=== PATIENT | female | born 1985 | race Caucasian/White ===

== ENCOUNTER 2023-01-29 08:12 | Emergency (ER) | payer OTHER, SELFPAY ==
[2023-01-29 08:16] VITALS: BP 136/93; PULSE 87; RESP 20; TEMP 36.7; O2SAT 99; BMI 35.1
--- NOTE | 2023-01-29 08:23 | ED.GENADUL1 ---
HPI - General Adult General Chief complaint: Urogenital-Female Stated complaint: BLOOD IN URINE Time Seen by Provider: 01/29/23 08:22 History of Present Illness HPI narrative: Patient is a 37-year-old female who is presenting to the Emergency Room with one episode of hematuria this morning. Patient has been taking 8-10 Motrin daily for the past month secondary to headaches. Patient is currently taking the Ozempic shot that she has purchased off the Internet from a nurse practitioner. Patient has lost approximately 22 pounds so far. Mother is at bedside. Patient also takes Excedrin daily to help with her headaches. Patient's been having normal daily headaches for the past month, she correlated to the Ozempic shot that she is receiving. Patient has a history of headaches and migraines, patient has tried multiple medications in the past with PCP with no relief for help with headaches when they come. She believes they come in waves. Patient has no headache today, she is not concerned about her headache today. Patient is most concerned about the one episode of hematuria that she had this morning and bladder cancer. Patient was on the Internet reading about bloody urine, she has no pain with hematuria. She had one episode like this 6 months ago and then it went away. Patient denies any type of trauma, sexual abuse, the types cuts to the vaginal/perianal area that could possibly bleeding. No hemorrhoids. Patient takes no blood thinners currently. Mother did add at the end of HPI the patient does have a history of factor V Leiden, she is currently noncompliant with any medication for that. She currently has no PCP, she's taking no blood thinners. She does take Excedrin tablet headaches, she takes no aspirin daily. She currently has no headache, no chest pain or shortness of breath. No abdominal pain, nausea or vomiting. She has some vague intermittent nausea and flank pain, she does not have a currently during my HPI physical exam. No recent traveling. Patient does smoke cigarettes a day. No control. No other acute complaints. No heavy lifting, twisting or turning recently. She is in no type of work, climbing, jet skis, or anything where her bodies been jumping up-and-down that could cause possible hematuria recently. . All systems are negative except as noted/marked. All systems reviewed and otherwise negative. . Nurses note and vital signs reviewed and patient is not hypoxic. General: The patient appears well and in no apparent distress. Patient is resting comfortably on cart. Patient is not toxic, lethargic, or listless Skin: Warm, dry, no pallor noted. There is no rash noted. No petechiae, purpura. Head: Normocephalic, atraumatic Eye: Normal conjunctiva, no drainage, EOMI. PERRL Ears, Nose, Mouth, and Throat: oral mucosa is moist. Nares patent. Mouth without vesicles. Cardiovascular: Regular Rate and Rhythm, no murmur, gallop, rub Respiratory: Patient is in no distress, no accessory muscle use, lungs are clear to auscultation, no wheezing, rales or rhonchi Back: non-tender, no CVA tenderness bilaterally to percussion. No CT LS midline pain GI: soft, no tenderness to palpation, no masses appreciated. No rebound, guarding, or rigidity noted. No flank pain bilateral, No distention. No flank pain bilateral. Musculoskeletal: Patient has full range of motion of all of the extremities, no motor, sensory, or focal neurological deficits Neurological: A&O x3, normal speech Psychiatric: Cooperative Related Data Home Medications Medication Instructions Recorded Confirmed semaglutide 1.3 mg subcut .weekly 01/29/23 01/29/23 Previous Rx's Medication Instructions Recorded metoclopramide HCl 10 mg tablet 10 mg PO Q6H PRN nausea and 01/29/23 (Reglan) vomiting 3 days #7 tabs Allergies Allergy/AdvReac Type Severity Reaction Status Date / Time No Known Drug Allergies Allergy Verified 01/29/23 08:15 PFSH PFSH Social History Smoking status: Never smoker Exam Constitutional Vital Signs, click to edit/add: Last Vital Signs Temp 98.1 F 01/29/23 08:16 Pulse 87 01/29/23 08:16 Resp 20 01/29/23 08:16 BP 136/93 H 01/29/23 08:16 Pulse Ox 99 01/29/23 08:16 O2 Del Method Room Air 01/29/23 08:16 Course Vital Signs Vital signs: Vital Signs Temperature 98.1 F 01/29/23 08:16 Pulse Rate 87 01/29/23 08:16 Respiratory Rate 20 01/29/23 08:16 Blood Pressure 136/93 H 01/29/23 08:16 Pulse Oximetry 99 01/29/23 08:16 Oxygen Delivery Method Room Air 01/29/23 08:16 Temperature 98.1 F 01/29/23 08:16 Pulse Rate 87 01/29/23 08:16 Respiratory Rate 20 01/29/23 08:16 Blood Pressure 136/93 H 01/29/23 08:16 Pulse Oximetry 99 01/29/23 08:16 Oxygen Delivery Method Room Air 01/29/23 08:16 Medical Decision Making MDM Narrative Medical decision making narrative: Patient has trace blood, no red blood cells. Patient was given 1 L of IV fluid. Lab work and urine showed no significant findings. Patient will follow up with and establish new PCP. Patient is given a PCP list. Patient was also referred to Dr. Nguyen for headaches and Dr. Alba to establish new PCP. Patient increase fluids. Patient's concerned about bladder cancer. Patient was educated several times including smoking, falling up with urology and Dr. Baird for further testing if needed for painless hematuria Lab Data Lab results reviewed: Yes I reviewed the patient's lab results Lab results narrative: Patient's BUN creatinine are within normal limits. There was a concern would be on creatinine secondary to moderate Motrin she is taking daily. Patient has trace blood in the urine, no significant red blood cells. alot of possibilities of differential diagnosis of painless hematuria were discussed the patient and mother bedside during HPI and at discharge. Labs: Lab Results 01/29/23 Range/Units 08:30 Sodium 138 (136-145) mmol/L Potassium 3.5 (3.5-5.1) mmol/L Chloride 103 (98-107) mmol/L Carbon Dioxide 28.1 (21.0-32.0) mmol/L Anion Gap 10.4 BUN 9.0 (7.0-18.0) mg/dL Creatinine 0.67 (0.55-1.02) mg/dL Est GFR ( Amer) >60 (>=60) Est GFR (Non-Af Amer) >60 (>=60) BUN/Creatinine Ratio 13.4 Glucose 94 (74-106) mg/dL Calcium 9.0 (8.5-10.1) mg/dL Urine Color Lt. yellow (YELLOW) Urine Clarity Clear (CLEAR) Urine pH 6.0 (5.0-9.0) Ur Specific [place] <=1.005 A (1.005-1.025) Urine Protein Negative (NEG/TRACE) mg/dL Urine Glucose (UA) Negative (NEGATIVE) mg/dL Urine Ketones Negative (NEGATIVE) mg/dL Urine Occult Blood Trace-i (NEGATIVE) Urine Nitrite Negative (NEGATIVE) Urine Bilirubin Negative (NEGATIVE) Urine Urobilinogen 0.2 (0.2-1.0) EU/dL Ur Leukocyte Esterase Negative (NEGATIVE) Urine RBC 0-2 (0-2) #/HPF Urine WBC None seen (NONE SEEN) #/HPF Ur Squamous Epith Cells Few A (NONE/RARE) #/LPF Urine Crystals None seen (None Seen) #/HPF Urine Bacteria Trace A (NONE SEEN) #/HPF Urine Casts None seen (NONE SEEN) #/LPF Urine Mucus None seen (NONE SEEN) Urine HCG, Qual Negative (NEGATIVE) Discharge Plan Discharge Chief Complaint: Urogenital-Female Clinical Impression: Hematuria Patient Disposition: Home, Self-Care Condition: Good Prescriptions / Home Meds: New metoclopramide HCl [Reglan] 10 mg tablet 10 mg PO Q6H PRN (Reason: nausea and vomiting) 3 Days Qty: 7 0RF No Action semaglutide [Ozempic] 1.3 mg subcut .weekly Instructions: Hematuria (ED) Additional Instructions: Continue to increase fluids. Establish a PCP, especially with her history of factor V Leiden. Start taking at least a baby aspirin if not a full aspirin daily. Be cautious with taking Excedrin and Motrin together. Use Reglan as needed for nausea and vomiting or headaches.Follow-up with neurology and urology if needed for headaches and hematuria if it continues Stand Alone Forms: Portal Instructions Referrals: CHOLO NGUYEN [Physician] - 1 week Matt Alba MD [Physician] - 1 week Physician,Non-Staff, [Primary Care Provider] - 1 week Miah Baird MD [Physician] - 1 week
[2023-01-29 08:47] LABS: Bilirubin Urine NEGATIVE (NEGATIVE); Blood Urine TRACE-I (NEGATIVE); Clarity Urine CLEAR (CLEAR); Color Urine LT. YELLOW (YELLOW); Glucose Urine UA NEGATIVE (NEGATIVE); Ketones Urine NEGATIVE (NEGATIVE); Leukocyte Esterase Urine NEGATIVE (NEGATIVE); Nitrite Urine NEGATIVE (NEGATIVE); Protein Urine NEGATIVE (NEG/TRACE); Specific Gravity Urine <=1.005 (1.005-1.025); Urobilinogen Urine 0.2 EU/dL (0.2-1.0)
[2023-01-29 08:56] LABS: Anion Gap 10.4; BUN Creatinine Ratio 13.4; Bacteria Urine TRACE #/HPF (NONE SEEN); Carbon Dioxide 28.1 mmol/L (21.0-32.0); Cast Seen? NONE SEEN #/LPF (NONE SEEN); Chloride 103 mmol/L (98-107); Crystals Seen? None Seen #/HPF (None Seen); Estimated GFR (African America >60 (>=60); Estimated GFR (Non-African Ame >60 (>=60); Glucose 94 mg/dL (74-106); Mucus Urine NONE SEEN (NONE SEEN); Potassium 3.5 mmol/L (3.5-5.1); RBC Urine 0-2 #/HPF (0-2); Sodium 138 mmol/L (136-145); Squamous Epithelial Cell Urine FEW #/LPF (NONE/RARE); WBC Urine NONE SEEN #/HPF (NONE SEEN)
[2023-01-29 08:57] LABS: HCG Qualitative Urine* NEGATIVE (NEGATIVE)
[2023-01-29] MEDS: 0.9 % SODIUM CHLORIDE 1,000 ML 1000 ML IV (09:07)
== END 2023-01-29 09:53 | disposition home or self-care (01) ==
PROVIDERS: Emergency Provider Emergency Medicine
DX: R31.9 Hematuria, unspecified (principal); D68.51 Activated protein C resistance
CPT/HCPCS: 36415; 80048; 81001; 84703; 99284

== ENCOUNTER 2023-02-21 08:00 | Outpatient (OUT) | payer OTHER, SELFPAY ==
--- NOTE | 2023-02-21 08:05 | CT_ITS ---
The [address] [address] Patient Name: ALEXANDER RAMOS MRN: [id number]:[id number] date: 1985 Sex: F Assigned Patient Location: CT Current Patient Location: CT Accession/Order Number: [id number] Exam Date: 02/21/2023 09:07 Report Date: 02/21/2023 09:53 At the request of: NON-STAFF PHYSICIAN Procedure: CT abdomen pelvis w con EXAM: CT abdomen pelvis w con HISTORY: Gross hematuria R31.0 COMPARISON: None. TECHNIQUE: Axial CT images were obtained of the abdomen and pelvis with intravenous contrast. Postcontrast images were obtained in the portal venous and delayed phases. Multiplanar reconstructions were performed. ABDOMEN/PELVIS FINDINGS: Lower Chest: Atelectasis is present in the right lung base. Liver: Normal enhancement and contour. Biliary/Gallbladder: Unremarkable. Pancreas: Unremarkable. Spleen: Unremarkable. Adrenal Glands: Unremarkable. Kidneys: No renal calculus or hydronephrosis identified. Gastrointestinal/Peritoneum: No acute abnormality. The appendix is unremarkable. No free air or free fluid. Vascular: Unremarkable. Lymph Nodes: No enlarged lymph nodes by CT size criteria. Pelvic Organs: Unremarkable. Bladder: Unremarkable. Bones: No acute osseous abnormality. Mild degenerative disc and facet disease is present at the lower lumbar spine. Soft tissues: Unremarkable. CT/CT abdomen pelvis w con IMPRESSION: 1. No acute abnormality of the abdomen and pelvis. Electronically authenticated by: CONCEPCION SILVA Date: 02/21/2023 09:53
== END 2023-02-21 08:01 | disposition home or self-care (01) ==
LOC: CT 08:00
DX: R31.0 Gross hematuria (principal)
CPT/HCPCS: 74177; Q9967

== ENCOUNTER 2023-03-04 21:40 | Emergency (ER) | payer OTHER, SELFPAY ==
[2023-03-04 21:43] VITALS: BP 121/81; PULSE 83; RESP 16; TEMP 36.8; O2SAT 97; BMI 34.5
--- NOTE | 2023-03-04 22:03 | ED_ITS ---
HPI - Extremity Injury (Lower) General Chief Complaint: Extremity Injury, Lower Stated Complaint: lower leg Pain Time Seen by Provider: 03/04/23 21:51 Source: patient Mode of arrival: walk-in History of Present Illness HPI Narrative: history of factor V leiden deficiency. Past history of PE when she was in her early 20s. Today around 4pm developed pain of her right calf. concerned about possible blood clot and decided to some into the ER. No fever. No swelling or redness of her leg. No injury Related Data Home Medications Medication Instructions Recorded Confirmed No Known Home Medications 03/04/23 03/04/23 Allergies Allergy/AdvReac Type Severity Reaction Status Date / Time No Known Drug Allergies Allergy Verified 01/29/23 08:15 Review of Systems ROS Status of ROS 10 or more systems reviewed and unremarkable except as noted in history and below [facility] Social History Smoking status: Former smoker Exam Constitutional Vital Signs, click to edit/add: Last Vital Signs Temp 98.3 F 03/04/23 21:43 Pulse 83 03/04/23 21:43 Resp 16 03/04/23 21:43 BP 121/81 03/04/23 21:43 Pulse Ox 97 03/04/23 21:43 O2 Del Method Room Air 03/04/23 21:43 Common normals: no apparent distress, average body habitus, oriented x3, no limitations, healthy appearing and alert Eye Common normals: EOMs intact bilaterally and conjunctivae normal Respiratory Common normals: normal respiratory effort, no retractions, no use of accessory muscles and clear to auscultation bilaterally Cardio Common normals: regular rate, regular rhythm, S1 normal heart sound and S2 normal heart sound GI Common normals: Normal to inspection, nondistended, normoactive bowel sounds present and soft to palpation Extremity Common normals: normal to inspection and full ROM Other: right leg is not swollen but she does have tenderness of the right calf and popliteal. No erythema or warmth Neuro Common normals: oriented x3, moves all extremities, no focal motor deficits and no sensory deficits noted Psych Appearance: grossly normal Course Vital Signs Vital signs: Vital Signs Temperature 98.3 F 03/04/23 21:43 Pulse Rate 83 03/04/23 21:43 Respiratory Rate 16 03/04/23 21:43 Blood Pressure 121/81 03/04/23 21:43 Pulse Oximetry 97 03/04/23 21:43 Oxygen Delivery Method Room Air 03/04/23 21:43 Temperature 98.3 F 03/04/23 21:43 Pulse Rate 83 03/04/23 21:43 Respiratory Rate 16 03/04/23 21:43 Blood Pressure 121/81 03/04/23 21:43 Pulse Oximetry 97 03/04/23 21:43 Oxygen Delivery Method Room Air 03/04/23 21:43 MDM - Extremity Injury (Lower) MDM Narrative Medical decision making narrative: patient has past history of PE several years ago. Past history of factor V Leiden. Now presents with right calf pain and tenderness. No known injury no fever. No swelling. d-dimer neg. Patient informed of the lack of findings at this time of a DVT. Will have her arrange an out patient US of her leg as the US tech is not in house at this time of night. Discharge Plan Discharge Chief Complaint: Extremity Injury, Lower Clinical Impression: Acute pain of right lower extremity Prescriptions / Home Meds: No Action No Known Home Medications Instructions: Leg Pain (ED) Additional Instructions: follow up with ultrasound of your leg Stand Alone Forms: Portal Instructions Referrals: Physician,Non-Staff, MD [Primary Care Provider] - 1 week
[2023-03-04 22:21] LABS: Basophils Absolute Auto 0.1 10^3/uL (0.0-0.1); Basophils Percent Auto 0.6 % (0.2-2.0); Eosinophils Absolute Auto 0.1 10^3/uL (0.0-0.7); Eosinophils Percent Auto 1.1 % (0.9-7.0); Hematocrit 40.2 % (36.0-48.0); Hemoglobin 13.4 g/dL (12.0-16.0); Immature Granulocytes Abs Auto 0.03 10^3/uL (0.00-0.03); Immature Granulocytes Pct Auto 0.3 % (0.0-0.5); Lymphocytes Absolute Auto 3.1 10^3/uL (1.2-3.8); Mean Corpuscular HGB Conc 33.3 g/dL (29.9-35.2); Mean Corpuscular Hemoglobin 29.6 pg (26.7-34.0); Mean Corpuscular Volume 88.7 fL (81.0-99.0); Mean Platelet Volume 9.8 fL (9.5-13.5); Monocytes Absolute Auto 0.6 10^3/uL (0.3-0.8); Monocytes Percent Auto 6.2 % (1.7-12.0); Neutrophils Absolute Auto 6.1 10^3/uL (1.4-6.5); Neutrophils Percent Auto 60.8 % (43.0-75.0); Platelet Count 349 10^3/uL (150-450); Red Blood Count 4.53 10^6/uL (4.20-5.40); Red Cell Distribution Width 13.2 % (11.0-15.0)
[2023-03-04 22:29] LABS: Anion Gap 12.2; BUN Creatinine Ratio 16.4; Carbon Dioxide 25.4 mmol/L (21.0-32.0); Chloride 105 mmol/L (98-107); Estimated GFR (African America >60 (>=60); Estimated GFR (Non-African Ame >60 (>=60); Glucose 117 mg/dL (74-106); Potassium 3.6 mmol/L (3.5-5.1); Sodium 139 mmol/L (136-145)
== END 2023-03-04 23:17 | disposition home or self-care (01) ==
PROVIDERS: Emergency Provider Internal Medicine
DX: M79.661 Pain in right lower leg (principal); D68.51 Activated protein C resistance; Z86.711 Personal history of pulmonary embolism; Z87.891 Personal history of nicotine dependence
CPT/HCPCS: 36415; 80048; 85025; 85378; 99283

== ENCOUNTER 2025-01-24 20:24 | Emergency (ER) | payer OTHER, SELFPAY ==
[2025-01-24 20:53] VITALS: BP 138/100; PULSE 120; TEMP 36.8; O2SAT 96; BMI 32.7
--- OUTSIDE RECORDS SUMMARY | 2025-01-24 21:14 | XMS_ITS | Encounter Summary ---
[facility] Organization [facility] Address [address] [place] [address] Care Team Providers Care Special Education Coordinator Name Role Phone Rosy Dominguez GHADA-STRUCTURAL ENGINEERING PROJECT MANAGER Primary Care Provider Susie Driver MD Unavailable Reason for Visit * Reason Onset Date Comments No Show 01/19/2016 Encounter Details Date Type Department Care Team (Late st Contact Info) Description 01/19/2016 Telephone [facility] [address] [place] [address] [place] [address] Sydnee Bowling No Show Social History Tobacco Use Types Packs/Day Years Used Date Smoking Tobacco: Former Cigarettes 0 11/22/2011 - 11/21/2014 Smokeless Tobacco: Never Comments:quit when found out Alcohol Use Standard Drinks/Week Comments Yes 0 (1 standard drink = 0.6 oz pure alcohol) 1 x a week; not during Comments No Sex and Gender Information Value Date Recorded Sex Assigned at Not on file Legal Sex Female 6:43 PM EST Gender Identity Female Sexual Orientation Not on file 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 Answer Date of Assessment Author No 10/02/2015 10:00 PM Ina Arnold RN * Are you blind or do you have serious difficulty seeing, even when wearing glasses? Answer Date of Assessment Author No 10/02/2015 10:00 PM Ina Arnold RN * Do you have serious difficulty walking or climbing stairs (5 years or older)? Answer Date of Assessment Author No 10/02/2015 10:00 PM Ina Arnold RN * Do you have difficulty dressing or bathing (5 yrs or older)? Answer Date of Assessment Author No 10/02/2015 10:00 PM Ina Arnold RN * Because of a physical, mental, or emotional condition, do you have difficulty doing errands alone such as visiting a doctor's office or shopping (5 yrs or older)? Answer Date of Assessment Author No 10/02/2015 10:00 PM Ina Arnold RN documented as of this encounter Mental Status * Because of a physical, mental, or emotional condition, do you have serious difficulty concentrating, remembering, or making decisions (5 yrs or older)? Answer Entry Date Author No 10/02/2015 10:00 PM Ina Arnold RN documented in this encounter Plan of Treatment Not on file documented as of this encounter Visit Diagnoses Not on filedocumented in this encounter Additional Health Concerns Assessment Noted Time PHQ-9 Depression Total Score: 13 016 9:40 AM EDT documented as of this encounter Care Teams Special Education Coordinator Relationship Specialty Start Date End Date Rosy Dominguez APRN-JOSE PCP - General Certified Nurse Practitioner 04/22/13 02/05/21 Susie Loving MD PCP - OBGYN Obstetrics & Gynecology 10/03/15 documented as of this encounter
--- OUTSIDE RECORDS SUMMARY | 2025-01-24 21:14 | XMS_ITS | Clinical Summary ---
Author Organization [facility] tem Address [id number] [address] 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 07/24/2021 Overview (07/24/2021): Patient taking Lovenox will need growth ultrasounds every 4 weeks starting at 28 weeks Factor 5 Leiden mutation, heterozygous Overview (07/24/2021): Patient on Lovenox Less than 8 weeks gestation of 022 Iron deficiency anemia 04/26/2021 Vitamin D insufficiency 04/26/2021 Obesity due to excess calories 04/26/2021 Chronic fatigue 04/26/2021 Migraine without aura and wi thout status migrainosus, not intractable 04/26/2021 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 Repeat 3 years History of pulmonary embolism 10/23/2012 Overview (07/02/2021): Lovenox 40qd. Change to heparin at 36 weeks Will treat with 7500 units bid. Check PTT 6 hours after dose. Follow plts Based on her history I am recommending: i. Continue Low molecular heparin 40 mg subcutaneous now until 36 weeks or if labor. ii. At 36 weeks: switch to heparin 76627 units subcutaneous twice/day. iii. Stop anticoagulation during labor. iv. At 6 hours after vaginal delivery or 12 hours after , and if there are no concerns of bleeding, please start low molecular heparin 40 mg subcutaneous twice a day for 6 weeks. v. Observe for signs of DVT or PE. Resolved Problems Problem Noted Date Diagnosed Date Resolved Date Depression with anxiety 03/18/201709/2020 Immunizations Immunization Administration Dates Next Due Influenza, Injectable, quadrivalent (PF) 021 Family History Medical History Relation Name Comments Stroke Maternal Grandfather Cancer Maternal Grandmother GALLBLD ZAN Hypertension Mother Colon cancer Paternal Grandfather Diabetes Paternal Grandmother Breast cancer Neg Hx Ovarian cancer Neg Hx Relation Name Status Comments Brother Alive Father Alive Maternal Grandfather Maternal Grandmother Mother Alive Paternal Grandfather Paternal Grandmother Alive Social History Tobacco Use Types Packs/Day Years Used Date Smoking Tobacco: Former Cigarettes Q uit: 12/11/2005 Smokeless Tobacco: Never Tobacco Cessation:Counseling Given: Not Answered Alcohol Use Standard Drinks/Week Comments Not Currently 0 (1 standard drink = 0.6 oz pur e alcohol) rare PHQ-2 Answer Date Recorded Total Score 0 11/06/2021 Childcare Answer Date Recorded Childcare Unknown 12/02/2018 Employment Answer Date Recorded Employment Unknown 12/02/2018 Hunger Screening Answer Date Recorded Within the past 12 months we worried whether our food would run out before we got money to buy more. Never True 06/10/2022 Within the past 12 months th e food we bought just didn't last and we didn't have money to get more. Never True 06/10/2022 Comments No Sex and Gender Information Value Date Recorded Sex Assigned at Not on file Legal Sex Female 11:29 AM EDT Gender Identity Not on file Sexual Orientation Not on file Last Filed Vital Signs Vital Sign Reading Time Taken Comments Blood Pressure 124/74 06/10/2022 9:01 AM EST Pulse 60 06/10/2022 9:01 AM EST Temperature 36.8 C (98.2 F) 06/10/2022 9:01 AM EST Respiratory Rate 16 05/14/2022 10:3 9 AM EST Oxygen Saturation 97% 06/10/2022 9:01 AM EST Inhaled Oxygen Concentration - - Weight 114.5 kg (252 lb 6.4 oz) 06/10/2022 9:01 AM EST Height 172.7 cm (5' 7.99 ) 06/10/2022 9:01 AM ES T Body Mass Index 38.39 06/10/2022 9:01 AM EST Plan of Treatment Health Maintenance Due Date Last Done Comments Depression Screening 1997 Tobacco Screening 1997 Adult BMI Screening 06/10/2023 06/10/2022 Pap Smear 12/12/2023 12/11/2020, 11/22, 10/23/2012 COVID-19 Vaccine (2023- 5 season) 2024 05/18/2021, 09/30/2020, 09/02/2020 Influenza Vaccine 02/21/2025 04/26/2021, 03/10/2015 DTaP,Tdap and Td Vaccines (2 - Td or Tdap) 07/03/2025 07/03/2015 Medical Devices Not on file Procedures Procedure Name Priority Date/Time Associated Diagnosis Comments PAP SMEAR Routine 12/11/2020 10:55 AM EDT Screening for cervical cancer Well woman exam with routine gynecological exam from Last 3 Months or Most Recently Relevant to Health Maintenance Results * Pap Smear (12/11/2020 10:55 AM EDT) 12/11/2020 10:5 5 AM EDT 12/12/2020 10:58 AM EDT Narrative COPATH - 12/15/2020 1:18 PM EDT [email or web address] [address] [place] [address] Gynecologic Cytology Consultation Patient Name: DOMENICA BHANDARI : 1985 (Age: 35) Gender: F Taken: 12/11/2020 Reported: 12/15/2020 Physician(s): CASSANDRA Rick ([phone]) Copy To: [facility] Rec. #: [id number] Acct: # [id number] Final Cytologic Interpretation ThinPrep Pap Test (Vaginal/Cervical): Satisfactory for evaluation. A transformation zone component is present. NEGATIVE FOR INTRAEPITHELIAL LESION OR MALIGNANCY. lvt/12/15/2020 Interpretation performed at [facility], [address] [place] [address], License number: [id number]. Electronically Signed Out By ELLIOT Bonner(ASCP) Date of Last Menstrual Period: 11/29/2020 Other Clinical Conditions: Z12.4 Screening for malignant neoplasm of cervix Z01.419 Consulting It Architect exam wo/abn findings Source of Specimen ThinPrep Pap Test (Vaginal/Cervical) Thin Prep Pap (WEB SITE DESIGNER) Fee Code(s): G0145 The Pap test is a screening test with an inherent, but low, probability of error. The Pap test is primarily effective for the diagnosis and prevention of squamous cell carcinoma. Regular screening is critical for prevention. ThinPrep liquid-based slides, which meet the Verification Rep criteria for automated screening, have been screened by the ThinPrep Imaging System (as of 03/09/07) along with an additional manual rescreening by a neurodiagnostic tech and, if indicated, by a pathologist. Leanna TRUJILLO PATHOLOGY/CYTOLOGY ORDER PAIGE Final Result COPATH from Last 3 Months or Most Recently Relevant to Health Maintenance Insurance ANTH Care Teams Linux Solaris Administrator Relationship Specialty Start Date End Date Susana Ricardo, LOCKSTITCH LINING MAKER-PAD EXTRACTION TENDER [address], [place] [address] PCP - General Family Medicine 08/02/21
--- OUTSIDE RECORDS SUMMARY | 2025-01-24 21:14 | XMS_ITS | Clinical Summary ---
Author Organization [facility] Address [facility] [place] [address] Care Team Providers Care Wildland Fire Fighter Specialist Name Role Phone Rosy Dominguez CNP Unavailable [phone] Rosy Dominguez CNP Primary Care Provider [phone] Allergies No known active allergies Medications dextroamphetamin e-amphetamine (ADDERALL) 30 mg tablet Take 30 mg by mouth daily. Active fluticasone propionate (FLONASE) 50 mcg/actuation nasal sprayIndications :Acute non-recurrent maxillary sinusitis,Acute dysfunction of left eustachian tube Instill 2 (two) sprays into each nostril daily . 16 g 07/09/2019 Active Active Problems No known active problems Family History Medical History Relation Comments Glaucoma Father No Known Problems Mother Relation Status Comments Father Mother Social History Tobacco Use Types Packs/Day Years Used Date Smoking Tobacco: Former Smokeless Tobacco: Never Comments:Quit 2013 Alcohol Use Standard Drinks/Week Comments Yes 0 (1 standard drink = 0.6 oz pur e alcohol) Social Comments No Sex and Gender Information Value Date Recorded Sex Assigned at Not on file Legal Sex Female 1:41 PM EDT Gender Identity Not on file Sexual Orientation Not on file Last Filed Vital Signs Vital Sign Reading Time Taken Comments Blood Pressure 139/88 02/02/2020 4:26 PM EDT Pulse 96 02/02/2020 4:26 PM EDT Temperature 37.8 C (100 F) 02/02/2020 4:26 PM EDT Respiratory Rate 16 02/02/2020 4:26 PM EDT Oxygen Saturation 99% 02/02/2020 4:26 PM EDT Inhaled Oxygen Concentration - - Weight 112.5 kg (248 lb) 02/02/2020 4:26 PM EDT Height 172.7 cm (5' 8 ) 07/09/2019 7:42 PM EST Body Mass Index 37.71 07/09/2019 7:42 PM EST Plan of Treatment Health Maintenance Due Date Last Done Comments Depression Screening/Follow- Up (PHQ-2/9) 1997 HIV Screening 2000 Hepatitis C Screening 09/09/2003 Pap Smear 2006 Cervical Cancer Screening 09/09/2015 HPV/Cotest 09/09/2015 Wellness Visit 02/09/2016 02/08/2015 COVID-19 Vaccine (2023-2 5 season) 2024 Influenza Vaccine (#1) 2025 03/10/2015 Tetanus: Every 10yrs 07/03/2025 07/03/2015 Pneumococcal Vaccine: Ped or At-Risk Aged Out No longer eligible b ased on patient's age to complete this topic Insurance [facility] HMO/CHOICE PLUS/VALERIY/VALERIY PLUS [facility] HMO/CHOICE PLUS/VALERIY/VALERIY PLUS [employer] [place] [address] Care Teams Wildland Fire Fighter Specialist Relationship Specialty Start Date End Date Rosy Dominguez CNP [address] [place] [address] PCP - General Internal Medicine 02/02/20 Rosy Dominguez CNP [address] [place] [address] Internal Medicine 11/12/18
--- OUTSIDE RECORDS SUMMARY | 2025-01-24 21:14 | XMS_ITS | Clinical Summary ---
Author Organization [facility] Address [address] [place] [address] [place] [address] Care Team Providers Care Sow Farm Barn Technician Name Role Phone Eliz Loving MD Unavailable [phone] Allergies No known active allergies Medications Prenat w/o T-RoLm-YlCr-DSS -FA ( VITAMIN) Tab take 1 tablet by mouth daily. 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 Repeat 3 years OARRS REVIEWED AND APPROPRIATE BY DOCTOR: 06/28/16 08/02/2014 Overview (07/19/2016): 06/28/16- APPROPRIATE 01/19/15-APPROPRIATE 08/01/14-APPROPRIATE Generalized anxiety disorder 01/03/2014 Headache(784.0) 05/06/2013 History of pulmonary embolism 10/23/2012 Overview (09/05/2015): Lovenox 40qd. Change to heparin at 36 weeks Will treat with 7500 units bid. Check PTT 6 hours after dose. Follow plts Superficial injury of conjunctiva 08/28/2010 Resolved Problems Problem Noted Date Diagnosed Date Resolved Date 10/02/2015 11/17/2015 Normal labor and delivery 10/02/2015 Elevated glucose 07/04/2015 11/17/2015 Overview (07/11/2015): glucola 139. Needs 3h GTT Normal 3h GTT (72/133/131/105) Genetic screening 03/31/2015 11/17/2015 Overview (03/31/2015): FTS results: DSR: , T102/02: Heterozygous factor V Leiden complicating , antepartum 10/23/2012 12/28/2012 Immunizations Immunization Administration Dates Next Due Tdap Vaccine 07/03/2015 influenza, injectable, quadrivalent 03/10/2015 Family History Medical History Relation Name Comments Cancer- Other Maternal Grandmother Gallbl adder Diabetes Mother Hypertension Mother Bleeding or Clotting Problems Other 2 Pat uncles and 2 cousins with Factor V Leiden Bleeding or Clotting Problems Paternal Grandfather Factor V [place] Cancer- Other Paternal Grandfather Pancre atic Diabetes Paternal Grandmother Relation Name Status Comments Brother Alive Father Alive Maternal Grandfather Alive Maternal Grandmother Mother Alive Other Paternal Grandfather Paternal Grandmother Alive Social History Tobacco Use Types Packs/Day Years Used Date Smoking Tobacco: Every Day Cigarettes Started: 11/22/2011; Last attempted to quit: 11/21/2014 Smokeless Tobacco: Never Tobacco Cessation:Ready to Q uit: Yes; Counseling Given: No Comments:quit when found out Alcohol Use Standard Drinks/Week Comments Yes 0 (1 standard drink = 0.6 oz pure alcohol) 1 x a week; not during Depression Answer Date Recorded PHQ-9 Score 6 11/08/2019 Comments No Sex and Gender Information Value Date Recorded Sex Assigned at Not on file Legal Sex Female 6:43 PM EST Gender Identity Female Sexual Orientation Not on file 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 Not on file Not on file Not on jack e Last Filed Vital Signs Vital Sign Reading Time Taken Comments Blood Pressure 124/80 11/17/2018 10:52 AM EDT Pulse 100 11/17/2018 10:52 AM EDT Temperature 36.9 C (98.4 F) 06/02/2018 2:21 PM EST Respiratory Rate 16 06/02/2018 2:21 PM EST Oxygen Saturation 98% 06/02/2018 2:21 PM EST Inhaled Oxygen Concentration - - Weight 90.3 kg (199 lb) 11/17/2018 10:52 AM EDT Height 170.2 cm (5' 7 ) 06/02/2018 2:21 PM EST Body Mass Index 31.17 06/02/2018 2:21 PM EST Plan of Treatment Health Maintenance Due Date Last Done Comments HEPATITIS C VIRUS SCREENING 1985 HEP B VACCINE (1 of 3 - 19+ 3-dose series) 2004 PREVENTATIVE HEALTH VISIT 02/09/2016 02/08/2015 PAP SMEAR 11/16/2018 11/17/2015, 10/23/2012 COVID-19 VACCINE ( - 2023-2 5 season) 2024 INFLUENZA VACCINE (#1) 2025 03/10/2015 TETANUS 07/03/2025 07/03/2015 HIV SCREENING DISCUSSION Completed 015, 10/23/2012 TDAP (ADULT) Completed 07/03/2015 HPV VACCINE Aged Out No longer eligi ble based on patient's age to complete this topic PNEUMOCOCCAL VACCINE SERIES Aged Out No longer eligible based on patient's age to complete this topic Procedures Procedure Name Priority Date/Time Associated Diagnosis Comments CYTOLOGY-RELIEF MAN, LIQUID BASED Routine 11/17/2015 10:48 AM EDT HIV 1 AND 2 ANTIBODIES Routine 02/08/2015 3:09 PM EDT Unspecified screening Encounter for supervision of other normal , unspecified trimester from Last 3 Months or Most Recently Relevant to Health Maintenance Results * CYTOLOGY-RELIEF MAN, LIQUID BASED (11/17/2015 10:48 AM EDT) Historical Case Report Cytology Report Patient Name: ALEXANDER BHANDARI Med. Rec. #: [id number] Submitting Physician: ELIZ LOVING Clinical History: Date of Last Menstrual Period: 01/03/2015 Treatment History: HPV HR with genotype regardless of Pap - Routine follow-up [Z39.2] - Primary Source of Specimen(s): * A: Cervical/Endocer vical, Liquid Based, ThinPrep Pap Stain x 4, DBP x 1 Statement of Adequacy: Satisfactory For Evaluation; Endocervical/Tra nsformation Zone Component Present. ---Cytologic Interpretation-- - - Atypical Squamous Cells of Undetermined Significance (ASC-US). - HPV Results Reported As An Addendum. rzsx/RZSX:11/23/19 16 Electronicall y Signed Out By Maryanne White MD Plater Hot Dip : ELLIOT [place](ASCP) Procedures/ Addenda HPV High Risk, with Genotyping Date Ordered: 11/21/2015 Status: Signed Out Date Reported: 11/22/2015 Interpretation HPV Genotype 16: Negative HPV Genotype 18: Negative HPV other High Risk types, PCR: Negative HPV DNA detection performed by Real-Time PCR. The assay detects HPV 16, 18, 31, 33, 35, 39, 45, 51, 52, 56, 58, 59, 66, 68. The Cale Kya 4800 is FDA approved for Thin Prep sample testing. Sure Path sample testing was developed and its performance characteristics determined by the [facility] at [facility]. This assay has not been cleared or approved by the FDA for Sure Path samples. The laboratory is regulated under CLIA as qualified to perform high complexity testing. This test is used for clinical purposes. It should not be regarded as investigational or for research. CLINICAL LABORATORY Pathologic Diagnosis Statement of Adequacy: Satisfactory For Evaluation; Endocervical/Tra nsformation Zone Component Present. ---Cytologic Interpretation-- - - Atypical Squamous Cells of Undetermined Significance (ASC-US). - HPV Results Reported As An Addendum. CLINICAL LABORATORY CYTOLOGY, OTHER 11/17/2015 1 0:48 AM EDT 11/21/2015 10:48 AM EDT us Eliz Loving MD CYTOLOGY Edited Result - Final CLINICAL LABORATORY [address] [place] [address] * HIV 1 AND 2 ANTIBODIES (02/08/2015 3:09 PM EDT) HIV-1/HIV-2 AB/p24 Antigen NONREACTIVE NONREACTIVE LAB, [facility] 02/08/2015 3:09 PM EDT 02/08/2015 6:05 PM EDT Joanie Ocasio MAIL TELLER-NUCLEAR PLANT EQUIPMENT OPERATOR IMMUNOLOGY ORDERABLES Final Result LAB, [facility] [address] [place] [phone] from Last 3 Months or Most Recently Relevant to [place] [address] Advance Directives For more information, please contact: [phone] (7:30 AM - 6PM [facility], Friday-Friday) * Full Code-Unverified (Latest Code Status on File) Date Activated Date Inactivated Comments 10/03/2015 11:21 AM 10/05/2015 3:13 PM * Full Code-Unverified Date Activated Date Inactivated Comments 10/02/2015 6:11 PM 10/03/2015 11:21 AM * Full Code Date Activated Date Inactivated Comments 12/10/2012 9:34 AM 12/10/2012 5:34 PM Care Teams Sow Farm Barn Technician Relationship Specialty Start Date End Date Eliz Loving MD PCP - OBGYN Obstetrics & Gynecology 10/03/15
--- OUTSIDE RECORDS SUMMARY | 2025-01-24 21:14 | XMS_ITS | Encounter Summary ---
Author Organization [employer] Address [id number] [address] [place] [address] Care Team Providers Care Director Family Name Role Phone Susana Ricardo APRN-SURFACE PLATE INSPECTOR Primary Care Provi zan Encounter Details Date Type Department Care Team (Late st Contact Info) Description 06/12/2021 Telephone [facility] [address] [id number] Tammi Wild MA Social History Tobacco Use Types Packs/Day Years Used Date Smoking Tobacco: Former Cigarettes Q uit: 12/11/2005 Smokeless Tobacco: Never Alcohol Use Standard Drinks/Week Comments Yes 0 (1 standard drink = 0.6 oz pur e alcohol) rare PHQ-2 Answer Date Recorded Total Score 0 05/16/2021 Childcare Answer Date Recorded Childcare Unknown 12/02/2018 Employment Answer Date Recorded Employment Unknown 12/02/2018 Comments No Sex and Gender Information Value Date Recorded Sex Assigned at Not on file Legal Sex Female 11:29 AM EDT Gender Identity Not on file Sexual Orientation Not on file COVID-19 Exposure Response Date Recorded In the last month, have you been in contact with someone who was confirmed or suspected to have Coronavirus / COVID-19? No / Unsure 05/16/2021 8:48 AM EST documented as of this encounter Miscellaneous Notes * Telephone Encounter - Tammi Wild MA - 06/12/2021 9:55 AM EST Patient called to set up for an intake appt. She did mention once she became she was told she needed to start giving herself shots due to embolisms when she was younger? I set her intake up for Jul 11 and I let patient know if you needed to call before her appt that you would contact her. If not, to keep appt and you would go over everything with her then . Patient ok'd * Telephone Encounter - Sydnee Child LPN - 06/12/2021 9:55 AM EST Spoke with Pt, note sent to Dr Arellano. documented in this encounter Plan of Treatment Not on file documented as of this encounter Visit Diagnoses Not on filedocumented in this encounter Additional Health Concerns Assessment Noted Time PHQ-9 Depression Total Score: 0 05/16/20 8:53 AM EST A Body Mass Index follow-up plan has been documented for the patient 12/11/2020 12:05 PM EDT documented as of this encounter Care Teams Director Family Relationship Specialty Start Date End Date Susana Ricardo, GHADA-JOSE [address], [place] [address] PCP - General Family Medicine 08/02/21 documented as of this encounter
--- OUTSIDE RECORDS SUMMARY | 2025-01-24 21:14 | XMS_ITS | Encounter Summary ---
Author Organization [employer] [email or web address] Address [id number] [address] [place] [address] Care Team Providers Care Headrig Sawyer Name Role Phone Susana Ricardo Primary Care Provi [facility] Reason for Referral * Diagnostic Imaging (Routine) - Closed Specialty Diagnoses / Procedures Referred By Conttigre t Referred To Contact Maternal and Medicine Diagnoses First trimester screening Procedures US MFM with or without consult Jeny Hopkins APRN-CNM [address], [address] [place] [address] Phone: tel: fax: Maternal- Medicine at [facility] [address] [place] [address] Phone: tel: fax: Referral ID Status Reason Start Date Expiration Date Visits Re quested Visits Authorized [id number] Closed 06/21/2021 06/21/2022 1 1 Encounter Details Date Type Department Care Team (Late st Contact Info) Description 06/21/2021 Orders Only Maternal- Medicine at [facility] [address] [place] [phone] Jeny Hopkins, [facility] [address] [facility] PHOENIXShabbir, [address] [place] [address] First trimester screening (Primary Dx) Social History Tobacco Use Types Packs/Day Years [...] on file Sexual Orientation Not on file documented as of this encounter Plan of Treatment Not on file documented as of this encounter Results * US MFM BASIC OB < 14 WEEKS, 1 FETUS (07/02/2021 8:54 AM EST) Anatomical Region Laterality Modality Pelvis Ultrasound 07/02/2021 8:29 AM EST Impressions 07/02/2021 11:05 AM EST IMPRESSION: 1. Single intrauterine size consistent with dates. KATHERINE 02/19/22. 2. Small subchorionic hematoma noted near the lower uterine segment and measures 0.7 x 1 x 0.6 cm. Narrative 07/02/2021 11:05 AM EST OBSTETRICS REPORT (Signed Final 07/02/2021 11:05) PATIENT INFO: ID #: [id number] : [birth year] (35 yrs)(F) Name: DOMENICA HERNANDEZ Visit Date: 07/02/2021 08:29 RICHARD PERFORMED BY: Performed By: Destini Kellogg RDMS Attending: Johann Raman MD Referred By: Meri He. Address: [facility] [place] [address] Location: Maternal Medicine Mtz SERVICE(S) PROVIDED: OB Transvaginal 19643 Basic OB, 1st trimester (< 14 weeks), 1 fetus [id number] INDICATIONS: Viability O36.80X9 Supervision of other high risk , O09.90 antepartum- Factor V Supervision of elderly (over 35 years), O09..519 antepartum VITAL SIGNS: Weight (lb): 258 Height: 5'8 BMI: 39.22 EVALUATION: Num Of Fetuses: 1 Yolk Sac: 2.5 Heart Rate(bpm): 108 Cardiac Activity: Present & appears normal BIOMETRY: CRL: 6.2 mm G.Age: 6w 3d KATHERINE: 02/22/22 OB HISTORY: : 3 Term: 1 SAB: 1 Livin GESTATIONAL AGE: LMP: 6w 6d Date: 05/15/21 KATHERINE: 02/19/22 Best: 6w 6d Det. By: LMP (05/15/21) KATHERINE: 02/19/22 CERVIX UTERUS ADNEXA: Uterus Gravid uterus Left Ovary Size(cm) 1.5 x 2.2 x 1.5 Vol(ml): 2.59 Simple cyst measuring 1.3 x 1.2 x 0.8 cm. Right Ovary Not visualized Cul De Sac No fluid seen Adnexa No adnexal masses identified COMMENTS: 1. A trans vaginal ultrasound was performed to optimize the visualization of the lower uterine segment and the cervix. RECOMMENDATIONS: 1. Please see MFM consultation documentation from today's encounter. 2. Subsequent follow up or other follow up as clinically determined by primary OB provider unless otherwise specified by MFM. 3. Results forwarded to ordering provider so they can follow up with the patient as necessary. Johann Raman MD Electronically Signed Final Report 07/02/2021 11:05 Procedure Note Johann Raman MD - 07/02/2021 OBSTETRICS REPORT (Signed Final 07/02/2021 11:05) PATIENT INFO: ID #: [id number] : [birth year] (35 yrs)(F) Name: DOMENICA HERNANDEZ Visit Date: 07/02/2021 08:29 RICHARD PERFORMED BY: Performed By: Destini Kellogg RDMS Attending: Johann Raman MD Referred By: Meri He. Address: [facility] [place] [address] Location: Maternal Medicine Mtz SERVICE(S) PROVIDED: OB Transvaginal 720[address] Basic OB, 1st trimester (< 14 weeks), 1 fetus [id number] INDICATIONS: Viability O36.80X9 Supervision of other high risk , O09.90 antepartum- Factor V Supervision of elderly (over 35 years), O09..519 antepartum VITAL SIGNS: Weight (lb): 258 Height: 5'8 BMI: 39.22 EVALUATION: Num Of Fetuses: 1 Yolk Sac: 2.5 Heart Rate(bpm): 108 Cardiac Activity: Present & appears normal BIOMETRY: CRL: 6.2 mm G.Age: 6w 3d KATHERINE: 02/22/22 OB HISTORY: : 3 Term: 1 SAB: 1 Livin GESTATIONAL AGE: LMP: 6w 6d Date: 05/15/21 KATHERINE: 02/19/22 Best: 6w 6d Det. By: LMP (05/15/21) KATHERINE: 02/19/22 CERVIX UTERUS ADNEXA: Uterus Gravid uterus Left Ovary Size(cm) 1.5 x 2.2 x 1.5 Vol(ml): 2.59 Simple cyst measuring 1.3 x 1.2 x 0.8 cm. Right Ovary Not visualized Cul De Sac No fluid seen Adnexa No adnexal masses identified COMMENTS: 1. A trans vaginal ultrasound was performed to optimize the visualization of the lower uterine segment and the cervix. RECOMMENDATIONS: 1. Please see MFM consultation documentation from today's encounter. 2. Subsequent follow up or other follow up as clinically determined by primary OB provider unless otherwise specified by MFM. 3. Results forwarded to ordering provider so they can follow up with the patient as necessary. Johann Raman MD Electronically Signed Final Report 07/02/2021 11:05 IMPRESSION: IMPRESSION: 1. Single intrauterine size consistent with dates. KATHERINE 02/19/22. 2. Small subchorionic hematoma noted near the lower uterine segment and measures 0.7 x 1 x 0.6 cm. us Jeny Hopkins APRN-DELMARM IMG US ORDERABLES Final Re sult documented in this encounter Visit Diagnoses Diagnosis First trimester screening- Primary Other specified screening First trimester screening Other specified screening with inconclusive viability, other fetus Supervision of high risk , unspecified, unspecified trimester documented in this encounter Additional Health Concerns Assessment Noted Time PHQ-9 Depression Total Score: 0 05/16/20 21 8:53 AM EST A Body Mass Index follow-up plan has been documented for the patient 12/11/2020 12:05 PM EDT documented as of this encounter Care Teams Headrig Sawyer Relationship Specialty Start Date End Date Susana Ricardo, GHADA-DEAN OF GR[employer]UATE [employer]UDIES [address] [place] [address] PCP - General Family Medicine 08/02/21 documented as of this encounter
--- OUTSIDE RECORDS SUMMARY | 2025-01-24 21:14 | XMS_ITS | Encounter Summary ---
Author Organization [employer] Address [facility] [id number] [address] [place] [address] Care Team Providers Care Wharfmaster Name Role Phone Susana Ricardo WASTE HANDLING TECHNICIAN-PAYROLL CONSULTANT Primary Care Provi zan Encounter Details Date Type Department Care Team (Late st Contact Info) Description 02/18/2023 Orders Only [facility] Family Medicine [address] [place] [address] [place] [address] External, Scanning Provider Social History Tobacco Use Types Packs/Day Years Used Date Smoking Tobacco: Former Cigarettes Q uit: 12/11/2005 Smokeless Tobacco: Never Alcohol Use Standard Drinks/Week Comments Not Currently [...] Noted Time PHQ-9 Depression Total Score: 0 11/07/19 3:03 PM EDT A Body Mass Index follow-up plan has been documented for the patient 12/11/2020 12:05 PM EDT documented as of this encounter Care Teams Wharfmaster Relationship Specialty Start Date End Date Susana Ricardo, WASTE HANDLING TECHNICIAN-PAYROLL CONSULTANT [address], [place] [address] PCP - General Family Medicine 08/02/21 documented as of this encounter
--- OUTSIDE RECORDS SUMMARY | 2025-01-24 21:14 | XMS_ITS | Clinical Summary ---
Author Organization [facility] Healthcare Address [address] [place] [place] [address] Care Team Providers Care Molding Machine Operator Helper Name Role Phone Lelo Yap APRN-JOSE Unavailable Allergies No known active allergies Medications ketoconazole (NIZOral) 2 % creamIndicati ons:Other seborrheic dermatitis Apply thin layer to affected area bid as needed for flaring 15 g 12/30/19 24 Active fluocinonide (Lidex) 0.05 % external solutionIndic ations:Other seborrheic dermatitis Apply to affected areas on the scalp once a day when flared, hold when clear, 30 day supply 60 mL 01/08/20 25 Active ketoconazole (NIZOral) 2 % shampooIndica tions:Other seborrheic dermatitis Lather on scalp 2-3 x weekly, leave on 5 min before rinsing 120 mL 01/08/20 25 Active ketoconazole (NIZOral) 2 % shampooIndica tions:Other seborrheic dermatitis Lather on scalp 2-3 x weekly, leave on 5 min before rinsing 120 mL 12/30/19 24 025 Discontinued(Re order) fluocinonide (Lidex) 0.05 % external solutionIndic ations:Other seborrheic dermatitis Apply 1 application topically 2 (two) times a day as needed for irritation or rash 60 mL 12/30/19 24 025 Discontinued Active Problems No known active problems Encounters Date Type Department Care Team Description 01/07/2025 9:05 AM EDT [facility] [address] [place] [phone] Lelo Yap, PASSENGER SOLICITOR-BOAT WORKER Other seborrheic dermatitis (Primary Dx); Epidermal inclusion cyst 01/07/2025 Bamboo flowsheet [facility] [address] [place] [phone] Lelo Yap, PASSENGER SOLICITOR-BOAT WORKER 01/07/2025 Travel 01/06/2025 Travel from Last 3 Months Family History Medical History Relation Name Comments Hypertension Mother Melanoma Neg Hx Relation Name Status Comments Father Alive Mother Alive Social History Tobacco Use Types Packs/Day Years Used Date Smoking Tobacco: Former Cigarettes Q uit: 06/23/2015 Smokeless Tobacco: Never Tobacco Cessation:Counseling Given: Not Answered Comments Unknown Sex and Gender Information Value Date Recorded Sex Assigned at Female 12/30/2023 8:32 AM EDT Legal Sex Female 11:20 PM EDT Gender Identity Female 12/30/2023 8:32 AM EDT Sexual Orientation Straight 12/30/2023 8: 32 AM EDT Last Filed Vital Signs Vital Sign Reading Time Taken Comments Blood Pressure - - Pulse - - Temperature - - Respiratory Rate - - Oxygen Saturation - - Inhaled Oxygen Concentration - - Weight 109 kg (240 lb) 04/05/2021 12:00 PM EDT Height 170.2 cm (5' 7 ) 04/05/2021 12:00 PM EDT Body Mass Index 37.59 04/05/2021 12:00 PM EDT Plan of Treatment Upcoming Encounters Date Type Department Care Team (Late st Contact Info) Description 01/12/2026 9:20 AM EDT Office Visit [facility] [address] [facility] [address] [place] [phone] Lelo Yap, PASSENGER SOLICITOR-BOAT WORKER [address] [facility] [address] [place] [address] Health Maintenance Due Date Last Done Comments Pap Smear 11/16/2018 11/17/2015 Influenza Vaccine (#1) 2025 04/26/2021, 2014 Cervical Cancer Screening 12/11/2025 HPV/Cotest 12/11/2025 12/11/2020 Insurance [employer] Care Teams Molding Machine Operator Helper Relationship Specialty Start Date End Date Lelo Yap APRN-JOSE [address] [place] [address] PCP - [facility] [employer] 08/13/22 06/22/99
--- NOTE | 2025-01-24 21:17 | ED.GENADUL1 ---
HPI HPI - General Adult General Chief complaint: Back Pain/Injury Stated complaint: CAN'T URINATE Time Seen by Provider: 01/24/25 21:12 Source: patient Mode of arrival: walk-in Limitations: no limitations History of Present Illness HPI narrative: 39-year-old female presented to the emergency department because she cannot urinate. She has not urinated since 4 PM and feels like she needs to. She called a nurse helpline and they told her she probably has a fecal impaction and to go to the emergency department. She has not had a bowel movement in 3 days. Related Data Home Medications ?Medication ?Instructions ?Recorded ?Confirmed No Known Home Medications 03/04/23 01/24/25 Allergies Allergy/AdvReac Type Severity Reaction Status Date / Time No Known Drug Allergies Allergy Verified 01/24/25 20:53 Opioid HPI Opioid Management Most Recent Opioid Data: Last Pain Scale 6 01/24/25, 23:15 Last AUG Pain Assessment 01/24/25, 23:15 Review of Systems ROS Narrative A ten point review of systems is negative except as noted above. PFSH PFSH Social History Smoking status: Former smoker Little interest or pleasure in doing things: not at all Feeling down, depressed, or hopeless: not at all Exam Narrative Exam Narrative: Nurses note and vital signs reviewed and patient is not hypoxic. General: The patient appears standing when I walk into the room. Skin: Warm, dry, no pallor noted. There is no rash noted. Head: Normocephalic, atraumatic Eye: Normal conjunctiva, no drainage Ears, Nose, Mouth, and Throat: oral mucosa is moist. Nares patent. Cardiovascular: Regular Rate and Rhythm Respiratory: Patient is in no distress, no accessory muscle use, lungs are clear to auscultation, no wheezing, rales or rhonchi Back: non-tender GI: No distention and no masses Musculoskeletal: The patient has no evidence of calf tenderness, no pitting edema, symmetrical pulses noted bilaterally Neurological: A&O, normal speech Psychiatric: Cooperative Constitutional Vital Signs, click to edit/add: Last Vital Signs Temp 98.3 F 01/24/25 20:53 Pulse 120 H 01/24/25 20:53 Resp 19 01/24/25 20:53 BP 123/71 01/24/25 22:58 Pulse Ox 96 01/24/25 20:53 O2 Del Method Room Air 01/24/25 20:53 Course Vital Signs Vital signs: Vital Signs Temperature 98.3 F 01/24/25 20:53 Pulse Rate 120 H 01/24/25 20:53 Respiratory Rate 19 01/24/25 20:53 Blood Pressure 138/100 H 01/24/25 20:53 Pulse Oximetry 96 01/24/25 20:53 Oxygen Delivery Method Room Air 01/24/25 20:53 Temperature 98.3 F 01/24/25 20:53 Pulse Rate 120 H 01/24/25 20:53 Respiratory Rate 19 01/24/25 20:53 Blood Pressure 123/71 01/24/25 22:58 Pulse Oximetry 96 01/24/25 20:53 Oxygen Delivery Method Room Air 01/24/25 20:53 Medical Decision Making MDM Narrative Medical decision making narrative: The patient presented with acute urinary retention apparently secondary to severe constipation. Celis catheter was inserted and approximately 1400 mL of urine was present. CT scan shows significant constipation and she was given multiple enemas ultimately with excellent results. She feels much better now and is able to be discharged home and the Celis catheter was removed. Treatment diagnosis and follow-up were discussed with the patient. Differential Diagnosis Differential Diagnosis: Constipation, fecal impaction, urinary retention, pelvic mass Lab Data Lab results reviewed: Yes I reviewed the patient's lab results Labs: Lab Results 01/24/25 01/24/25 Range/Units 21:58 22:00 WBC 11.6 H (4.0-11.0) 10^3/uL RBC 4.25 (4.20-5.40) 10^6/uL Hgb 13.0 (12.0-16.0) g/dL Hct 37.7 (36.0-48.0) % MCV 88.7 (81.0-99.0) fL MCH 30.6 (26.7-34.0) pg MCHC 34.5 (29.9-35.2) g/dL RDW 12.3 (11.0-15.0) % Plt Count 300 (150-450) 10^3/uL MPV 10.1 (9.5-13.5) fL Neut % (Auto) 82.6 H (43.0-75.0) % Lymph % (Auto) 9.3 L (20.5-60.0) % [place]once % (Auto) 6.1 (1.7-12.0) % Eos % (Auto) 1.2 (0.9-7.0) % Baso % (Auto) 0.5 (0.2-2.0) % Neut # (Auto) 9.5 H (1.4-6.5) 10^3/uL Lymph # (Auto) 1.1 L (1.2-3.8) 10^3/uL Ponce # (Auto) 0.7 (0.3-0.8) 10^3/uL Eos # (Auto) 0.1 (0.0-0.7) 10^3/uL Baso # (Auto) 0.1 (0.0-0.1) 10^3/uL Abs Immat Gran (auto) 0.04 H (0.00-0.03) 10^3/uL Imm/Tot Granulo (auto) 0.3 (0.0-0.5) % Sodium 138 (136-145) mmol/L Potassium 3.9 (3.5-5.1) mmol/L Chloride 103 (98-107) mmol/L Carbon Dioxide 25.5 (21.0-32.0) mmol/L Anion Gap 13.4 BUN 10.0 (7.0-18.0) mg/dL Creatinine 0.88 (0.55-1.02) mg/dL Est GFR ( Amer) >60 (>=60 mL/min/1.73m^2) Est GFR (Non-Af Amer) >60 (>=60 mL/min/1.73m^2) BUN/Creatinine Ratio 11.4 Glucose 98 (74-106) mg/dL Calcium 9.2 (8.5-10.1) mg/dL Serum HCG, Qual Negative (NEGATIVE) Urine Color Lt. yellow (YELLOW) Urine Clarity Clear (CLEAR) Urine pH 6.0 (5.0-9.0) Ur Specific [place] <=1.005 A (1.005-1.025) Urine Protein Negative (NEG/TRACE) mg/dL Urine Glucose (UA) Negative (NEGATIVE) mg/dL Urine Ketones Negative (NEGATIVE) mg/dL Urine Occult Blood Negative (NEGATIVE) Urine Nitrite Negative (NEGATIVE) Urine Bilirubin Negative (NEGATIVE) Urine Urobilinogen 0.2 (0.2-1.0) EU/dL Ur Leukocyte Esterase Negative (NEGATIVE) Urine RBC None seen (0-2) #/HPF Urine WBC None seen (NONE SEEN) #/HPF Ur Squamous Epith Cells Rare (NONE/RARE) #/LPF Urine Crystals None seen (None Seen) #/HPF Urine Bacteria Trace A (NONE SEEN) #/HPF Urine Casts None seen (NONE SEEN) #/LPF Urine Mucus None seen (NONE SEEN) Ur Culture Indicated? No Imaging Data CT scan - abdomen: Radiologist's impression: ITS Impressions Abdomen/Pelvis CT 01/24/25 21:41 IMPRESSION: Moderate to large burden of stool rectosigmoid junction may represent fecal impaction and/or constipation. Impression dictated by: Jamir Eduardo M.D. 01/24/2025 11:38 PM Dictation Location: [facility] Electronically authenticated by: [id number] Y Date: 01/24/2025 23:38 Discharge Plan Discharge Chief Complaint: Back Pain/Injury Clinical Impression: Constipation, Acute urinary retention Patient Disposition: Home, Self-Care Time of Disposition Decision: 01:48 Condition: Good Mode of Transportation: Private Vehicle Prescriptions / Home Meds: No Action No Known Home Medications Print Language: Burundian Instructions: Constipation (ED) Referrals: Physician,Non-Staff, [Primary Care Provider] - 1 week
--- NOTE | 2025-01-24 21:41 | CT_ITS ---
The [address] [address] Patient Name: ALEXANDER RAMOS MRN: [id number] date: 1985 Sex: F Assigned Patient Location: ER Current Patient Location: ED.MAIN Accession/Order Number: [id number] Exam Date: 01/24/2025 23:34 Report Date: 01/24/2025 23:38 At the request of: YENNI RAMOS MD Procedure: CT abdomen pelvis w con CT ABDOMEN AND PELVIS WITH INTRAVENOUS CONTRAST: CLINICAL HISTORY: abd pain COMPARISON: 02/21/2023 TECHNIQUE: Spiral images were obtained through the abdomen and pelvis following the administration of intravenous contrast. This CT exam was performed using one or more following dose reduction techniques: Automated exposure control, adjustment of the mA and/or kV according to patient size, or use of iterative reconstruction technique. FINDINGS: Lung Bases: [Lung bases are clear] Organs:Liver, gallbladder, spleen, adrenals, kidneys, and pancreas are unremarkable.[ GI: Moderate to large burden of stool rectosigmoid junction, space just constipation and/or fecal impaction.. No evidence of bowel obstruction.[Appendix not visualized. Pelvis:[Uterus unremarkable. No adnexal mass. Bladder is collapsed around a Celis catheter balloon.] Peritoneum/Retroperitoneum:No free air or free fluid. Aorta unremarkable caliber.[ Abd wall/Bones:Degenerative changes notably L5-S1.[ CT/CT abdomen pelvis w con IMPRESSION: Moderate to large burden of stool rectosigmoid junction may represent fecal impaction and/or constipation. Impression dictated by: Jamir Eduardo M.D. 01/24/2025 11:38 PM Dictation Location: [place] [address] Electronically authenticated by: [id number] Y Date: 01/24/2025 23:38
[2025-01-24 22:00] VITALS: BP 119/86
[2025-01-24 22:07] LABS: Hematocrit 37.7 % (36.0-48.0); Hemoglobin 13.0 g/dL (12.0-16.0); Immature Granulocytes Abs Auto 0.04 10^3/uL (0.00-0.03); Immature Granulocytes Pct Auto 0.3 % (0.0-0.5); Lymphocytes Absolute Auto 1.1 10^3/uL (1.2-3.8); Mean Corpuscular HGB Conc 34.5 g/dL (29.9-35.2); Mean Corpuscular Hemoglobin 30.6 pg (26.7-34.0); Mean Corpuscular Volume 88.7 fL (81.0-99.0); Platelet Count 300 10^3/uL (150-450); Red Blood Count 4.25 10^6/uL (4.20-5.40); White Blood Count 11.6 10^3/uL (4.0-11.0)
[2025-01-24 22:08] LABS: Glucose Urine UA NEGATIVE (NEGATIVE)
[2025-01-24 22:15] LABS: Cast Seen? NONE SEEN #/LPF (NONE SEEN); Crystals Seen? None Seen #/HPF (None Seen)
[2025-01-24 22:16] LABS: Urine Culture Indicated NO
[2025-01-24 22:17] LABS: Anion Gap 13.4; Blood Urea Nitrogen 10.0 mg/dL (7.0-18.0); Calcium 9.2 mg/dL (8.5-10.1); Carbon Dioxide 25.5 mmol/L (21.0-32.0); Chloride 103 mmol/L (98-107); Estimated GFR (African America >60 (>=60 mL/min/1.73m^2); Estimated GFR (Non-African Ame >60 (>=60 mL/min/1.73m^2); Glucose 98 mg/dL (74-106); Potassium 3.9 mmol/L (3.5-5.1); Sodium 138 mmol/L (136-145)
[2025-01-24 22:58] VITALS: BP 123/71
[2025-01-24] MEDS: KETOROLAC TROMETHAMINE 30 MG/ML VIAL IVP (23:15)
[2025-01-25] MEDS: LIDOCAINE 2% JELLY 20 ML UR (00:23)
--- NOTE | 2025-01-25 01:45 | PC.NURSE ---
large amount of stool and feels much better after soap enema, Dr Bonilla informed of this
[2025-01-25 02:00] VITALS: BP 125/83; PULSE 91; TEMP 37.1; O2SAT 100
--- NOTE | 2025-01-25 02:28 | PC.NURSE ---
i gave this patient verbal and written discharge orders and this patient voices yes to understanding these discharge orders. at time of discharge this patient voices no concerns, needs and shows no signs of distress
== END 2025-01-25 02:27 | disposition home or self-care (01) ==
PROVIDERS: Emergency Provider Emergency Medicine
DX: K59.00 Constipation, unspecified (principal); R33.9 Retention of urine, unspecified; Z87.891 Personal history of nicotine dependence
CPT/HCPCS: 36415; 51702; 51798; 74177; 80048; 81001; 84703; 85025; 96374; 99285; J1885; Q9967